=== PATIENT | male | born 1985 | race Caucasian/White ===

== ENCOUNTER 2021-04-05 01:00 | Emergency (ER) | payer MEDICAID, OTHER ==
[~2021-04-05] VITALS: Ht 165.1 cm; Wt 77.1 kg
[2021-04-05 01:15] VITALS: BP 134/68
--- NOTE | 2021-04-05 01:22 | NUR ---
TO LOBBY FOLLOWING TRIAGE
--- NOTE | 2021-04-05 01:56 | NUR ---
PT TAKEN TO BED 8
[2021-04-05] MEDS ORDERED: SULFAMETH/TRIMETH DS 800/160MG 1 TAB PO ONE (02:00)
[2021-04-05] MEDS ORDERED: IBUPROFEN 800 MG TAB PO ONE (02:00)
[2021-04-05] MEDS ORDERED: IBUP-2218 PO (02:03)
[2021-04-05] MEDS ORDERED: SULF-59 PO (02:03)
--- NOTE | 2021-04-05 02:34 | NUR ---
WENT TO ADMINISTER SCHEDULED MEDICATIONS AND PT WAS NOT IN ROOM OR RESTROOM.
--- NOTE | 2021-04-05 02:36 | NUR ---
PT FOUND IN THE LOBBY. RETURNED TO ROOM FOR MEDICATION ADMINISTRATION
--- NOTE | 2021-04-05 02:45 | NUR ---
Patient discharged with v/s stable. Written and verbal after care instructions given and explained. Patient alert, oriented and verbalized understanding of instructions. Ambulatory with steady gait. All questions addressed prior to discharge. ID band removed. Patient advised to follow up with PMD. Rx of BACTRIM AND MOTRIN given. Patient educated on indication of medication including possible reaction and side effects. Opportunity to ask questions provided and answered.
[2021-04-05 02:47] VITALS: BP 132/72
--- NOTE | 2021-04-05 02:50 | NUR ---
PATIENT DC HOME ALL DC INSTRUCTION GAVE AND EXPLAING VITAL SIGNS IN NORMAL LIMITS NOT COMPLAINING OF PAIN PATIENT STABLE AT THE DC TIME //Magalie RN
== END 2021-04-05 02:45 | disposition home or self-care (01) ==
LOC: MED 01:00
DX: L03.116 Cellulitis of left lower limb (principal)
CPT/HCPCS: 90471; 90715; 99283